=== PATIENT | male | born 1965 | race Caucasian/White ===

== ENCOUNTER 2020-10-16 13:20 | Emergency (ER) | payer MEDICAID, OTHER ==
[~2020-10-16] VITALS: Ht 185.4 cm; Wt 106.6 kg
[2020-10-16] MEDS ORDERED: APIX5TAB PO (13:28)
[2020-10-16 13:43] VITALS: BP 123/88
[2020-10-16] MEDS: NITROGLYCERIN 0.4MG/HR (=16 CM2) PATCH TD ONE (13:43)
[2020-10-16] MEDS ORDERED: NITROGLYCERIN 0.1 MG/HR (=4 CM2) PATCH TD SCH (13:45)
[2020-10-16] MEDS ORDERED: NITROGLYCERIN 0.4MG/HR (=16 CM2) PATCH TD ONE (13:46)
[2020-10-16 14:09] LABS: CREATININE 1.5 mg/dL (0.6-1.3); POTASSIUM 4.4 mmol/L (3.5-5.1)
[2020-10-16] MEDS ORDERED: IV NORMAL SALINE 250 ML IV ONE (14:15)
[2020-10-16] MEDS ORDERED: IOHEXOL 350 100 ML INFUS..BTL ONE (14:15)
[2020-10-16] MEDS ORDERED: CELLULOSE,OXIDIZED 2x3 MC ONE (14:15)
[2020-10-16 14:17] LABS: BASOPHILS # (AUTO) 0.1 K/uL (0.0-8.0); BASOPHILS % (AUTO) 0.6 % (0.0-2.0); EOSINOPHILS # (AUTO) 0.1 K/uL (0.0-0.7); EOSINOPHILS % (AUTO) 1.5 % (0.0-7.0); HEMOGLOBIN 13.8 g/dL (12.5-16.3); LYMPHOCYTES % (AUTO) 32.7 % (20.5-51.5); MEAN CORPUSCULAR HEMOGLOBIN 30.3 uug (23.8-33.4); MEAN CORPUSCULAR HGB CONC 34 g/dL (32.5-36.3); MEAN CORPUSCULAR VOLUME 89.9 fL (73.0-96.2); MONOCYTES # (AUTO) 0.6 K/uL (2.0-10.0); MONOCYTES % (AUTO) 6.7 % (0.0-11.0); NEUTROPHILS # (AUTO) 5.4 K/uL (1.8-8.9); NEUTROPHILS % (AUTO) 58.5 % (38.5-71.5); PLATELET COUNT (AUTO) 233 K/uL (152-348); RED BLOOD CELL COUNT(AUTO) 4.56 MIL/uL (4.06-5.63); WHITE BLOOD COUNT (AUTO) 9.3 K/uL (3.6-10.2)
[2020-10-16 14:20] LABS: BILIRUBIN,DIRECT 0.1 mg/dL (0.0-0.2); BILIRUBIN,TOTAL 0.3 mg/dL (0.2-1.0); TOTAL PROTEIN, SERUM 7.8 g/dL (6.4-8.2)
[2020-10-16] MEDS: FUROSEMIDE 40 MG/4 ML VIAL IV ONE (14:40)
[2020-10-16] MEDS: IV NORMAL SALINE 500 ML BAG IV ONE (14:40)
--- NOTE | 2020-10-16 14:47 | NUR ---
COVID 19 ANTIGEN NEGATIVE PER LAB
--- NOTE | 2020-10-16 15:03 | NUR ---
Patient ambulated to bathroom 2x, pending telemetry admission@this time.
--- NOTE | 2020-10-16 15:03 | NUR ---
Called tele floor for bed assignment, charge nurse to call back.
--- NOTE | 2020-10-16 15:15 | NUR ---
Per ER admitting pt to be transfered, [facility] to call back with further information.
--- NOTE | 2020-10-16 16:00 | NUR ---
Patient is resting comfortably in bed with eyes closed. PATIENT IS PAIN FREE AT THIS TIME.
--- NOTE | 2020-10-16 17:14 | NUR ---
We are still waiting for a callback from his insurance (which is [employer]) regarding his transfer information. Patient was updated accordingly. ER registration staff oYvani will follow up with [facility] again.
--- NOTE | 2020-10-16 18:38 | NUR ---
Patient's [email or web address].
--- NOTE | 2020-10-16 18:46 | NUR ---
Patient will tranfer to outside Facility: [facility] Physician: Dr ROSS Location: room 600-A Insurance arranged ALS ambulance ETA= [id number] [facility] ambulance RN: pending acceptance still (I attempted to give [phone] but unsuccessful. Nurse Tika from [facility] said to call back after change of shift.)
--- NOTE | 2020-10-16 18:58 | NUR ---
Patient ate dinner with good appetite. Patient is refusing transfer to [facility] notified.
--- NOTE | 2020-10-16 19:09 | NUR ---
Patient has been talking to his family 1st before consenting to transfer to [facility].
--- NOTE | 2020-10-16 19:28 | NUR ---
Patient gave consent for transfer to [facility] after talking to his family & Dr Packer, endorsed to [employer] charge zone assembler Adrian accordingly.
--- NOTE | 2020-10-16 20:16 | NUR ---
Gave SBAR report to Deangelo nunez from [facility]
[2020-10-16] MEDS: IBUPROFEN 600 MG TABLET PO ONE (20:19)
[2020-10-16] MEDS ORDERED: IBUPROFEN 600 MG TABLET ONE (20:24)
--- NOTE | 2020-10-16 22:10 | NUR ---
Gave SBAR report to [facility] ambulance unit 110 who will transport patient to [facility].
== END 2020-10-16 22:27 | disposition short-term general hospital (02) ==
LOC: ER 13:20
DX: R07.9 Chest pain, unspecified (principal); I48.91 Unspecified atrial fibrillation; Z79.01 Long term (current) use of anticoagulants; F17.211 Nicotine dependence, cigarettes, in remission; J98.11 Atelectasis; Z20.822 Contact with and (suspected) exposure to COVID-19; I11.0 Hypertensive heart disease with heart failure; I50.9 Heart failure, unspecified; K44.9 Diaphragmatic hernia without obstruction or gangrene; Z68.31 Body mass index [BMI] 31.0-31.9, adult
CPT/HCPCS: 36415; 71045; 71275; 80048; 80076; 83880; 84484; 85025; 85610; 87426; 93005; 96374; 99285; J1940; Q9967; 70030-TC; A4663; J7040; J7050